=== PATIENT | male | born 1950 | race Caucasian/White ===

== ENCOUNTER 2021-09-17 15:27 | Inpatient (IN) ==
[2021-09-17] MEDS ORDERED: Ondansetron 4 MG/2 ML VIAL IVP PRN (19:44)
[2021-09-17] MEDS ORDERED: Naloxone 0.4 MG/ML INJ IVP PRN (19:44)
[2021-09-17] MEDS ORDERED: Acetaminophen 325 MG TABLET PO PRN (19:44)
[2021-09-17] MEDS ORDERED: Ipratropium 1 PUFF INHALER IH PRN (20:06)
[2021-09-17] MEDS ORDERED: 0.9 % Sodium Chloride 1,000 ML IVC SCH (21:15)
[2021-09-18 05:35] LABS: Hemoglobin 15.7 g/dL (12.9-16.9); Mean Corpuscular HGB Conc 33.4 g/dL (31.6-35.5); Mean Corpuscular Volume 89.9 fL (83.0-100.0); Mean Platelet Volume 10.8 fL (9.4-12.4); Platelet Count 236 K/mcL (140-400); Red Blood Count 5.23 M/mcL (4.19-5.50); Red Cell Distribution Width 12.6 % (11.5-14.5); White Blood Count 10.7 K/mcL (4.3-11.1)
[2021-09-18 05:50] LABS: BUN/Creatinine Ratio 23 (6-26); Blood Urea Nitrogen 30 mg/dL (8-23); Calcium 9.2 mg/dL (8.6-10.3); Carbon Dioxide 25 mEq/L (23-29); Chloride 103 mEq/L (98-107); Glucose 176 mg/dL (70-105); Osmolality,Calculated 290 (280-300); Potassium 4.7 mEq/L (3.5-5.1); Sodium 135 mEq/L (136-145); eGFR For African Americans > 60 (> 60); eGFR For Non-African Americans 53 (> 60)
[2021-09-18 05:52] LABS: C-Reactive Protein 32 mg/L (Less than 10)
[2021-09-18 06:11] LABS: Ferritin 440 ng/mL (20-250)
[2021-09-18] MEDS: *HR* Heparin 5,000 UNIT/ML VIAL SQ SCH ×3 (07:01→21:35)
[2021-09-18 11:42] LABS: Protein/Creatinine Ratio,Urine 0.08 mg/mg (0.00-0.20)
[2021-09-18 13:59] LABS: Alanine Aminotransferase 27 Units/L (7-52); Aspartate Amino Transferase 20 Units/L (13-39)
[2021-09-18] MEDS ORDERED: Remdesivir 200 MG in 0.9 % Sodium Chloride 100 ML IVPB ONE (15:21)
[2021-09-19 01:52] LABS: Albumin 3.6 g/dL (3.5-5.7); Albumin/Globulin Ratio 1.4 (1.1-2.2); Bilirubin,Direct 0.1 mg/dL (0.0-0.2); Bilirubin,Indirect 0.4 mg/dL (0.0-1.0); Bilirubin,Total 0.5 mg/dL (0.3-1.0); Globulin 2.6 g/dL (2.4-3.5); Total Protein 6.2 g/dL (6.4-8.9)
[2021-09-19] MEDS: *HR* Heparin 5,000 UNIT/ML VIAL SQ SCH ×2 (05:29→14:38)
[2021-09-19 06:47] VITALS: TEMP 97.8
[2021-09-19 11:12] VITALS: BP 159/94; PULSE 50
[2021-09-19 12:41] VITALS: O2SAT 94
[2021-09-19] MEDS ORDERED: Remdesivir 100 MG in 0.9 % Sodium Chloride 100 ML IVPB SCH (16:00)
== END 2021-09-19 14:50 | disposition home or self-care (01) | DRG 177 ==
LOC: 3BNU
PROVIDERS: ADMIT Hospitalist; ATTEND Hospitalist